=== PATIENT | male | born 1975 | race Caucasian/White ===

== ENCOUNTER 2017-01-18 16:00 | Emergency (ER) | payer BC ==
[~2017-01-18] VITALS: Ht 185.4 cm; Wt 104.5 kg
[2017-01-18 16:04] VITALS: TEMP 98.9
[2017-01-18] MEDS ORDERED: PRINIVIL2.5 MG PO (16:12)
[2017-01-18 17:23] VITALS: BP 116/82; PULSE 67
== END 2017-01-18 17:32 | disposition home or self-care (01) ==
LOC: COL.ER 16:00
DX: S52.502A Unspecified fracture of the lower end of left radius, initial encounter for closed fracture (principal); W11.XXXA Fall on and from ladder, initial encounter
CPT/HCPCS: J2405; J2704; J3010; J7030